=== PATIENT | male | born 1990 | race Caucasian/White ===

== ENCOUNTER 2018-09-05 14:38 | Emergency (ER) | payer OTHER ==
[~2018-09-05] VITALS: Ht 185.4 cm; Wt 131.5 kg
[2018-09-05 15:55] LABS: HEMATOCRIT 50.3 % (42.0-52.0); HEMOGLOBIN 17.2 gm/dL (14.0-18.0); MCH 30.4 pg (26.0-34.0); MCHC 34.2 g/dL (28.0-37.0); MCV 88.9 fL (80.0-100.0); MPV 7.7 fl. (7.2-11.1); NUCLEATED RBCS 0 /100WBC; PLATELET COUNT* 288 thou/uL (150-400); RBC 5.66 mil/uL (4.50-6.00); RDW-CV 13.3 % (10.5-14.5); WBC 12.9 thou/uL (4.0-11.0)
[2018-09-05 16:05] LABS: INFLUENZA A ANTIGEN None Detected (None Detect); INFLUENZA B ANTIGEN None Detected (None Detect)
[2018-09-05 16:11] LABS: ANION GAP 14 mmol/L (7-16); BUN 19 mg/dL (7-18); CALCIUM 9.4 mg/dL (8.5-10.1); CHLORIDE 98 mmol/L (98-107); CO2 24 mmol/L (21-32); CREATININE 1.5 mg/dL (0.6-1.3); GLUCOSE 97 mg/dL (70-99); POTASSIUM 4.1 mmol/L (3.5-5.1); SODIUM 136 mmol/L (136-145)
[2018-09-05 16:16] LABS: ALBUMIN 4.4 g/dL (3.4-5.0); ALKALINE PHOSPHATASE 87 U/L (46-116); SGOT 22 U/L (15-37); SGPT 29 U/L (30-65); TOTAL BILIRUBIN 1.7 mg/dL (<0.1-1.0); TROPONIN-I LEVEL <0.06 ng/mL (<0.06)
[2018-09-05 16:35] LABS: ABSOLUTE LYMPHOCYTES 1.2 thou/uL (0.8-5.3); ABSOLUTE MONOCYTES 0.8 thou/uL (0.0-1.2)
[2018-09-05 16:36] LABS: PLATELET ESTIMATE ADEQUATE
[2018-09-05 18:26] LABS: URINE BILIRUBIN NEGATIVE (Negative); URINE BLOOD NEGATIVE (Negative); URINE CLARITY CLEAR; URINE COLOR YELLOW; URINE GLUCOSE-RANDOM NEGATIVE (Negative); URINE KETONES 2+ (Negative); URINE LEUKOCYTES-REFLEX NEGATIVE (Negative); URINE NITRITE-REFLEX NEGATIVE (Negative); URINE PROTEIN TRACE (Negative); URINE UROBILINOGEN 0.2 E.U./dl (0.2-1.0)
[2018-09-05] MEDS ORDERED: ZOFRAN ODT4 MG PO (18:36)
[2018-09-05 18:44] VITALS: BP 137/88
--- NOTE | 2018-09-06 13:43 | EKG ---
[place] [address] ELECTROCARDIOGRAM REPORT Name: KB SMITH Room: [facility]#: [id number] Admission: 09/05/18 Attend Phys: Discharge: 09/05/18 Date of : [birth year] Report #: [id number] THIS REPORT FOR: //name// [facility] ED Test Date: 2018-09-05 Test Time: 15:17:19 Pat Name: BIRDIEYFNCHERYL SMITH Department: Room: Gender: Strategic Communications Manager: Fani PELLETIER : 1990 Requested By: Sofai Jorgensen Order Number: [id number] MD: Paul Calderon Measurements Intervals [place] Rate: 97 P: 53 SD: 142 QRS: 72 QRSD: 88 T: 19 QT: 359 QTc: 456 Interpretive Statements Sinus rhythm No previous ECG available for comparison Electronically Signed On 09-06-2018 13:43:26 CLIP RIVETER by Paul Calderon [email or web address] <ELECTRONICALLY SIGNED> By: Paul Calderon MD, [facility] 09/06/18 1343 1517 1517 Paul Calderon MD, FACC /EPI
== END 2018-09-05 18:45 | disposition home or self-care (01) ==
LOC: M.ERS 14:38
PROVIDERS: Personal Emergency Response Attendant
DX: B34.9 Viral infection, unspecified (principal); F41.9 Anxiety disorder, unspecified

== ENCOUNTER 2018-10-30 17:40 | Emergency (ER) | payer OTHER ==
[~2018-10-30] VITALS: Ht 182.9 cm; Wt 158.8 kg
[~2018-10-30 17:40] MED LIST: ZOFRAN ODT4 MG PO
[2018-10-30 18:26] LABS: ABSOLUTE BASOPHILS 0.1 thou/uL (0.0-0.2); ABSOLUTE EOSINOPHILS 0.1 thou/uL (0.0-0.7); ABSOLUTE LYMPHOCYTES 1.5 thou/uL (0.8-5.3); ABSOLUTE MONOCYTES 0.6 thou/uL (0.0-1.2); ABSOLUTE NEUTROPHILS 3.5 thou/uL (1.6-8.1); EOSINOPHILS 2.4 %; LYMPHOCYTES 25.7 %; MCH 30.7 pg (26.0-34.0); MCHC 34.6 g/dL (28.0-37.0); MCV 88.6 fL (80.0-100.0); MPV 7.8 fl. (7.2-11.1); NUCLEATED RBCS 0 /100WBC; PLATELET COUNT* 329 thou/uL (150-400); POLYS 59.9 %; RBC 5.87 mil/uL (4.50-6.00); RDW-CV 13.4 % (10.5-14.5); WBC 5.8 thou/uL (4.0-11.0)
[2018-10-30 18:32] LABS: APTT 28.5 Seconds (25.0-31.3); PROTIME 9.8 Seconds (9.20-11.50)
[2018-10-30 18:40] LABS: ANION GAP 12 mmol/L (7-16); BUN 13 mg/dL (7-18); CALCIUM 9.3 mg/dL (8.5-10.1); CHLORIDE 105 mmol/L (98-107); CO2 23 mmol/L (21-32); CREATININE 0.9 mg/dL (0.6-1.3); GLUCOSE 115 mg/dL (70-99); POTASSIUM 3.6 mmol/L (3.5-5.1); SODIUM 140 mmol/L (136-145); TROPONIN-I LEVEL <0.06 ng/mL (<0.06)
[2018-10-30 18:42] LABS: ALBUMIN 4.4 g/dL (3.4-5.0); ALKALINE PHOSPHATASE 112 U/L (46-116); NT-PRO BRAIN NAT PEPTIDE 7 pg/mL (<300); SGOT 52 U/L (15-37); SGPT 53 U/L (30-65); TOTAL BILIRUBIN 0.6 mg/dL (<0.1-1.0); TOTAL PROTEIN 8.3 g/dL (6.4-8.2)
[2018-10-30 19:27] LABS: URINE BLOOD NEGATIVE (Negative); URINE CLARITY CLEAR; URINE COLOR YELLOW; URINE GLUCOSE-RANDOM NEGATIVE (Negative); URINE KETONES TRACE (Negative); URINE LEUKOCYTES-REFLEX NEGATIVE (Negative); URINE NITRITE-REFLEX NEGATIVE (Negative); URINE PROTEIN TRACE (Negative); URINE SPECIFIC GRAVITY >= 1.030 (1.005-1.030)
[2018-10-30 19:31] LABS: ICTOTEST (BILI CONFIRMATORY) Negative (Negative); URINE BILIRUBIN 1+ (Negative)
[2018-10-30 19:40] LABS: AMP/METHAMP Negative (Negative); BARBITURATES Negative (Negative); BENZODIAZEPINES Negative (Negative); COCAINE Negative (Negative); METHADONE Negative (Negative); OPIATES Negative (Negative); PCP Negative (Negative); THC POSITIVE (Negative)
[2018-10-30] MEDS ORDERED: MEDROLDOSEPACK PO (19:46)
[2018-10-30 19:55] VITALS: BP 131/86
--- NOTE | 2018-10-31 11:18 | EKG ---
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
== END 2018-10-30 20:05 | disposition home or self-care (01) ==
LOC: M.ERS 17:40
PROVIDERS: Nurse Practitioner Family
DX: M94.0 Chondrocostal junction syndrome [Tietze] (principal); F41.9 Anxiety disorder, unspecified; Z91.013 Allergy to seafood; Z79.899 Other long term (current) drug therapy